=== PATIENT | male | born 1965 | race Two or more races ===

== ENCOUNTER 2020-06-12 08:30 | Inpatient (IN) | payer OTHER ==
[~2020-06-12] VITALS: Ht 172.7 cm; Wt 85.3 kg
[2020-06-12] MEDS ORDERED: ULTRAM50 MG PO (13:52)
[2020-06-19] MEDS ORDERED: COLACE100 MG PO (10:03)
[2020-06-19] MEDS ORDERED: PERCOCET 5-3251 EACH PO (10:03)
[2020-06-19] MEDS ORDERED: DIAZEPAM5 MG PO (10:03)
== END 2020-06-20 13:06 | disposition home or self-care (01) | DRG 473 ==
LOC: O/R 06-19 04:25 → SURH 06-19 04:25
PROVIDERS: ADMIT Orthopaedic Surgery Orthopaedic Surgery of the Spine; ATTEND Orthopaedic Surgery Orthopaedic Surgery of the Spine
PROC: 0RT30ZZ Resection of Cervical Vertebral Disc, Open Approach (ICD-10-PCS; 2020-06-19)
PROC: 07DS3ZZ Extraction of Vertebral Bone Marrow, Percutaneous Approach (ICD-10-PCS; 2020-06-19)
PROC: 0RG20A0 Fusion of 2 or more Cervical Vertebral Joints with Interbody Fusion Device, Anterior Approach, Anterior Column, Open Approach (ICD-10-PCS; principal; 2020-06-19 10:15)
DX: M50.023 Cervical disc disorder at C6-C7 level with myelopathy (principal); M48.02 Spinal stenosis, cervical region; Z20.828 Contact with and (suspected) exposure to other viral communicable diseases